=== PATIENT | female | born 1930 | race Caucasian/White ===

== ENCOUNTER 2017-11-14 21:10 | Emergency (ER) | payer MEDICARE, OTHER ==
[2017-11-14] MEDS: IV NORMAL SALINE 500ML BAG 500 ML IV (21:36)
[2017-11-14 21:37] LABS: BASO % 0 % (0-3); EOS % 0 % (0-3); HEMOGLOBIN 13.8 g/dL (12.0-15.5); LYMPH # 0.5 x10^3/uL (1.0-4.8); LYMPH % 4 % (24-48); MEAN CORPUSCULAR HEMOGLOBIN 33 pg (25-35); MEAN CORPUSCULAR HGB CONC 35 g/dL (31-37); MEAN CORPUSCULAR VOLUME 93 fL (79-100); MONO # 0.3 x10^3/uL (0.0-1.1); MONO % 3 % (0-9); NEUT # 10.9 x10^3uL (1.8-7.7); NEUT % 93 % (31-73); PLATELET COUNT 259 x10^3/uL (140-400); RED BLOOD COUNT 4.18 x10^6/uL (3.50-5.40); RED CELL DISTRIBUTION WIDTH 13.4 % (11.5-14.5); WHITE BLOOD COUNT 11.8 x10^3/uL (4.0-11.0)
[2017-11-14 21:42] LABS: ADD MAN DIFF? YES
[2017-11-14 21:52] LABS: ANION GAP 13 (6-14); BLOOD UREA NITROGEN 21 mg/dL (7-20); BUN/CREATININE RATIO 21 (6-20); CALCIUM 8.4 mg/dL (8.5-10.1); CARBON DIOXIDE 23 mmol/L (21-32); CHLORIDE 94 mmol/L (98-107); GFR 52.7; GLUCOSE 146 mg/dL (70-99); POTASSIUM 4.6 mmol/L (3.5-5.1); SODIUM 130 mmol/L (136-145)
[2017-11-14 21:54] LABS: ALBUMIN 3.7 g/dL (3.4-5.0); ALBUMIN/GLOBULIN RATIO 1.1 (1.0-1.7); ALK PHOS 63 U/L (46-116); ALT (SGPT) 24 U/L (14-59); AST (SGOT) 26 U/L (15-37); TOTAL BILIRUBIN 0.6 mg/dL (0.2-1.0); TOTAL PROTEIN 7.2 g/dL (6.4-8.2)
[2017-11-14 21:58] LABS: INFLUENZA A PATIENT NEGATIVE (NEGATIVE); INFLUENZA B PATIENT NEGATIVE (NEGATIVE); OBC FLU VALID
[2017-11-14 22:04] LABS: % BANDS 14 % (0-9); % MONOS 2 % (0-10); % SEGS 80 % (35-66)
[2017-11-14 22:05] LABS: % LYMPHS 4 % (24-48)
[2017-11-14 22:07] LABS: PLT ESTIMATE ADEQUATE (ADEQUATE)
[2017-11-14] MEDS: cefTRIAXone IV Push 1 GM VIAL. IVP (22:43)
== END 2017-11-14 23:39 | disposition home or self-care (01) ==
LOC: ER 21:10
DX: J20.9 Acute bronchitis, unspecified (principal); I10 Essential (primary) hypertension; E78.00 Pure hypercholesterolemia, unspecified; E11.9 Type 2 diabetes mellitus without complications
CPT/HCPCS: 36415; 71045; 80053; 85007; 85025; 87804; 87804-59; 93005; 96361; 96374; 99285-25; J0696; J7040

== ENCOUNTER → 2021-01-29 | Outpatient (CLI) | payer MEDICARE ==
[2020-06-18 11:00] VITALS: BP 148/70
[~2021-01-29] MED LIST: AMLO2.5T5 PO; ASCO100020 PO; ASPI-630 PO; CALC500T30 PO; CHOL10002 PO; CHON250C PO; FISH1200 PO; FLAV3.7O MC; FLAX340P PO; GLUC100018 PO; LACT1CAP2 PO; LISI-517 PO; OMEG-128 PO; OMEP20CA16 PO; PSYL0.5215 PO; RANI300C PO; SIMV20TA18 PO; [UNRECOGNIZED DRUG - CODE] PO
--- NOTE | 2021-01-29 15:22 | KCIC ---
EXAM: Cervical spine, 4 views. HISTORY: Pain. COMPARISON: None. FINDINGS: 4 views of the cervical spine are obtained. There is degenerative endplate remodeling with disc space narrowing, osteophytosis and facet arthropathy at C3-C7. There is no significant listhesis . No fracture is seen. There is calcified atherosclerotic plaque involving the carotid bifurcations. There is thoracic kyphoscoliosis. 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 No acute osseous find ing. Electronically signed by: Fabiola Lynne MD (01/29/2021 3:20 PM) [id number]
== END ==
LOC: KCIC 13:40
PROVIDERS: ATTEND Family Medicine
DX: M47.812 Spondylosis without myelopathy or radiculopathy, cervical region (principal)
CPT/HCPCS: 72040

== ENCOUNTER 2021-05-05 18:27 | Inpatient (IN) | payer MEDICARE ==
[~2021-05-05] VITALS: Ht 142.2 cm; Wt 49.0 kg
--- NOTE | 2021-05-05 22:10 | RAD ---
Single view chest dated 05/05/2021 10:07 PM: COMPARISON: 11/14/2017 Clinical Indication: Covid 19.. Findings: Single upright portable exam of the chest was performed. Heart and mediastinal contours are stable. T ortuosity of the thoracic aorta, unchanged. There is mild patchy increased density at the left lung b ase, similar to prior study. No pleural effusion. No pneumothorax. IMPRESSION: 1. No acute radiographic abnormality. Stable findings compared to 11/14/2017. Electronically signed by: Ian Grossman MD (05/05/2021 10:08 PM) GEETA
--- NOTE | 2021-05-05 22:14 | ED.ADGEN ---
Past Medical History Past Medical History: High Cholesterol, Hypertension Additional Past Medical Histor: COVID POSITIVE 04/26/21 Past Surgical History: No Surgical History Smoking Status: Never Smoker Alcohol Use: None Drug Use: None General Adult EDM: Chief Complaint: FLU SYMPTOM HPI: HPI: Patient is a 89 year old female coming in via EMS for nausea and because she wants someone to take care of her and does not have anyone at home who is willing to do so. Patient was diagnosed with COVID-19 9 days ago and states that she does not feel that she can take care of herself. Lives with her son who works, and has been going to work despite living with her and her positive Covid status. Patient states she has had decreased appetite is been taking levofloxacin prescribed by her primary care, but it makes her nauseous. Patient states that she had tried to stay with her daughter's family but they are also all sick and "unable to take care" of her. Patient is not vaccinated against COVID-19. No other complaints. Review of Systems: Review of Systems: All other systems within normal limits except for as noted in the HPI Allergies: Allergies: Allergies Coded Allergies Type Severity Reaction Last Updated Verified Sulfa (Sulfonamide Antibiotics) Allergy Intermediate Rash 06/16/20 Yes Physical Exam: PE: Constitutional: Well developed, well nourished, no acute distress, non-toxic appearance. [] HENT: Normocephalic, atraumatic, bilateral external ears normal, nose normal. [] Eyes: PERRLA, conjunctiva normal, no discharge. [] Neck: No rigidity, supple, no stridor. [] Cardiovascular: Regular rate and rhythm, brisk cap refill [] Lungs & Thorax: Non labored symmetric respirations, no tachypnea or respiratory distress [] Abdomen: Soft, nondistended. Skin: Warm, dry, no erythema, no rash. [] Back: Unremarkable Extremities: No deformities, range of motion grossly intact, no lower extremity edema [] Neurologic: Alert and oriented X 3, no focal deficits noted. [] Psychologic: Affect normal, judgement normal, mood normal. [] Current Patient Data: Labs: Laboratory Tests Test 05/05/21 22:35 White Blood Count 3.1 x10^3/uL (4.0-11.0) L Red Blood Count 4.26 x10^6/uL (3.50-5.40) Hemoglobin 14.2 g/dL (12.0-15.5) Hematocrit 38.9 % (36.0-47.0) Mean Corpuscular Volume 91 fL (79-100) Mean Corpuscular Hemoglobin 33 pg (25-35) Mean Corpuscular Hemoglobin Concent 37 g/dL (31-37) Red Cell Distribution Width 12.3 % (11.5-14.5) Platelet Count 177 x10^3/uL (140-400) Neutrophils (%) (Auto) 58 % (31-73) Lymphocytes (%) (Auto) 27 % (24-48) Monocytes (%) (Auto) 13 % (0-9) H Eosinophils (%) (Auto) 1 % (0-3) Basophils (%) (Auto) 0 % (0-3) Neutrophils # (Auto) 1.8 x10^3/uL (1.8-7.7) Lymphocytes # (Auto) 0.8 x10^3/uL (1.0-4.8) L Monocytes # (Auto) 0.4 x10^3/uL (0.0-1.1) Eosinophils # (Auto) 0.0 x10^3/uL (0.0-0.7) Basophils # (Auto) 0.0 x10^3/uL (0.0-0.2) Sodium Level 130 mmol/L (136-145) L Potassium Level 4.0 mmol/L (3.5-5.1) Chloride Level 95 mmol/L (98-107) L Carbon Dioxide Level 28 mmol/L (21-32) Anion Gap 7 (6-14) Blood Urea Nitrogen 6 mg/dL (7-20) L Creatinine 0.7 mg/dL (0.6-1.0) Estimated GFR (Cockcroft-Gault) 78.8 BUN/Creatinine Ratio 9 (6-20) Glucose Level 93 mg/dL (70-99) Calcium Level 8.3 mg/dL (8.5-10.1) L Magnesium Level 1.8 mg/dL (1.8-2.4) Total Bilirubin 0.3 mg/dL (0.2-1.0) Aspartate Amino Transferase (AST) 25 U/L (15-37) Alanine Aminotransferase (ALT) 30 U/L (14-59) Alkaline Phosphatase 65 U/L (46-116) Troponin I Quantitative < 0.017 ng/mL (0.000-0.055) Total Protein 6.1 g/dL (6.4-8.2) L Albumin 3.6 g/dL (3.4-5.0) Albumin/Globulin Ratio 1.4 (1.0-1.7) Lipase 311 U/L (73-393) Laboratory Tests 05/05/21 22:35 Laboratory Tests 05/05/21 22:35 Vital Signs: Vital Signs Date Time Temp Pulse Resp B/P (MAP) Pulse Ox O2 Delivery O2 Flow Rate FiO2 05/05/21 21:30 98.0 90 20 179/90 (96) 98 Room Air 98.0 EKG: EKG: Sinus rhythm, prolonged AK interval, no ST elevation depression, left axis deviation [] Heart Score: C/O Chest Pain: No HEART Score for Chest Pain: HEART Score for Chest Pain Response (Comments) Value History Slighlty/Non-Suspicious 0 ECG Nonspecific Repolarizatio 1 Age > 65 2 Risk Factors 1 or 2 Risk Factors 1 Troponin < Normal Limit 0 Total 4 Risk Factors: Risk Factors: DM, Current or recent (<one month) smoker, HTN, HLP, family history of CAD, obesity. Risk Scores: Score 0 - 3: 2.5% MACE over next 6 weeks - Discharge Home Score 4 - 6: 20.3% MACE over next 6 weeks - Admit for Clinical Observation Score 7 - 10: 72.7% MACE over next 6 weeks - Early Invasive Strategies Radiology/Procedures: Radiology/Procedures: [facility] [address] [place] [address] IMAGING REPORT Signed PATIENT: CRISTEL HUFF ACCOUNT: [id number] : 1930 LOCATION: ER AGE: 89 SEX: F EXAM STATUS: REG ER ORD. PHYSICIAN: LUIS ANGEL MORRIS MD REASON: covid PROCEDURE: CHEST AP ONLY Single view chest dated 05/05/2021 10:07 PM: COMPARISON: 11/14/2017 Clinical Indication: Covid 19.. Findings: Single upright portable exam of the chest was performed. Heart and mediastinal contours are stable. Tortuosity of the thoracic aorta, unchanged. There is mild patchy increased density at the left lung base, similar to prior study. No pleural effusion. No pneumothorax. IMPRESSION: 1. No acute radiographic abnormality. Stable findings compared to 11/14/2017. Electronically signed by: Ian Grossman MD (05/05/2021 10:08 PM) [facility] [place] DICTATED and SIGNED BY: IAN GROSSMAN MD DATE: 05/05/21 [id number] [] Course & Med Decision Making: Course & Med Decision Making Pertinent Labs and Imaging studies reviewed. (See chart for details) [] Dragon Disclaimer: Dragon Disclaimer: This electronic medical record was generated, in whole or in part, using a voice recognition dictation system. Departure Departure Impression: Primary Impression: COVID-19 Additional Impressions: Hyponatremia Weakness Disposition: ADMITTED INPATIENT Admitting Physician: Shell Strickland Condition: STABLE Referrals: SHELL STRICKLAND MD (PCP) Problem Qualifiers LUIS ANGEL MORRIS MD May 05, 2021 22:14
[2021-05-05 22:40] LABS: BASO % 0 % (0-3); EOS % 1 % (0-3); HEMATOCRIT 38.9 % (36.0-47.0); HEMOGLOBIN 14.2 g/dL (12.0-15.5); LYMPH # 0.8 x10^3/uL (1.0-4.8); LYMPH % 27 % (24-48); MEAN CORPUSCULAR HEMOGLOBIN 33 pg (25-35); MEAN CORPUSCULAR HGB CONC 37 g/dL (31-37); MEAN CORPUSCULAR VOLUME 91 fL (79-100); MONO # 0.4 x10^3/uL (0.0-1.1); MONO % 13 % (0-9); NEUT # 1.8 x10^3/uL (1.8-7.7); NEUT % 58 % (31-73); PLATELET COUNT 177 x10^3/uL (140-400); RED BLOOD COUNT 4.26 x10^6/uL (3.50-5.40); RED CELL DISTRIBUTION WIDTH 12.3 % (11.5-14.5); WHITE BLOOD COUNT 3.1 x10^3/uL (4.0-11.0)
[2021-05-05 22:52] LABS: CALCIUM 8.3 mg/dL (8.5-10.1); CREATININE 0.7 mg/dL (0.6-1.0); GFR 78.8
[2021-05-05 22:59] LABS: ALBUMIN 3.6 g/dL (3.4-5.0); ALBUMIN/GLOBULIN RATIO 1.4 (1.0-1.7); MAGNESIUM 1.8 mg/dL (1.8-2.4); TOTAL BILIRUBIN 0.3 mg/dL (0.2-1.0); TOTAL PROTEIN 6.1 g/dL (6.4-8.2)
[2021-05-05] MEDS ORDERED: ONDANSETRON PF 4 MG/2 ML VIAL. IVP PRN (23:30)
[2021-05-05] MEDS ORDERED: ACETAMINOPHEN 325 MG TABLET. PO PRN (23:30)
[2021-05-05] MEDS: IV NORMAL SALINE 1000ML BAG 1,000 ML IV SCH (23:52)
--- NOTE | 2021-05-06 01:30 | EKG ---
[facility] [address] [place] [address] Test Date: 2021-05-05 Test Time: 22:05:51 Pat Name: CRISTEL HUFF Department: Room: Gender: F [employer]: : 1930 Requested By: LUIS ANGEL MORRIS Order Number: [id number] Reading MD: Measurements Intervals [place] Rate: 83 P: 54 CO: 238 QRS: -39 QRSD: 68 T: 61 QT: 352 QTc: 419 Interpretive Statements SINUS RHYTHM PROLONGED CO INTERVAL ABNORMAL LEFT AXIS DEVIATION R-S TRANSITION ZONE IN V LEADS DISPLACED TO THE RIGHT QRS(T) CONTOUR ABNORMALITY CONSIDER INFERIOR INFARCT ABNORMAL ECG RI6.02 No previous ECG available for comparison
[2021-05-06 02:42] LABS: BILIRUBIN,URINE NEGATIVE (NEG); CLARITY,URINE CLEAR; COLOR,URINE YELLOW; NITRITE,URINE NEGATIVE (NEG); PH,URINE 7.5 (<5.0-8.0); PROTEIN,URINE NEGATIVE (NEG-TRACE); UROBILINOGEN,URINE 0.2 mg/dL (0.2 mg/dL)
[2021-05-06 03:12] LABS: BACTERIA,URINE 0 /HPF (0-FEW); RBC,URINE 0 /HPF (0-2); WBC,URINE OCC /HPF (0-4)
[2021-05-06 03:50] LABS: BASO % 1 % (0-3); EOS % 1 % (0-3); HEMATOCRIT 39.1 % (36.0-47.0); HEMOGLOBIN 13.9 g/dL (12.0-15.5); LYMPH % 31 % (24-48); MEAN CORPUSCULAR HEMOGLOBIN 33 pg (25-35); MEAN CORPUSCULAR HGB CONC 36 g/dL (31-37); MEAN CORPUSCULAR VOLUME 93 fL (79-100); MONO # 0.5 x10^3/uL (0.0-1.1); MONO % 16 % (0-9); NEUT # 1.6 x10^3/uL (1.8-7.7); NEUT % 51 % (31-73); PLATELET COUNT 165 x10^3/uL (140-400); RED BLOOD COUNT 4.19 x10^6/uL (3.50-5.40); RED CELL DISTRIBUTION WIDTH 12.1 % (11.5-14.5); WHITE BLOOD COUNT 3.1 x10^3/uL (4.0-11.0)
[2021-05-06 04:01] LABS: CALCIUM 8.1 mg/dL (8.5-10.1); CREATININE 0.7 mg/dL (0.6-1.0); GFR 78.8
[2021-05-06] MEDS: IV NORMAL SALINE 1000ML BAG 1,000 ML IV SCH (09:45)
[2021-05-06 11:00] VITALS: BP 135/68
--- NOTE | 2021-05-06 11:42 | HP ---
ADMIT DATE: 05/06/2021 CHIEF COMPLAINT AND HISTORY OF PRESENT ILLNESS: This 89-year-old female who has been feeling bad for the last 1-2 weeks. She is surrounded by COVID with her family having ___ daughters with them trying to take care of her because of progressive weakness. She has had no appetite whatsoever. Has been taking in very little, getting weaker, needing more and more help with self care. She finally called the ambulance herself on the evening of admission, knowing that she was not making it at home. Seen in the Emergency Room where lab was pretty much unremarkable other than some hyponatremia with profound weakness and admitted for some hydration as well as further evaluation. PAST MEDICAL HISTORY: Remarkable for osteoporosis. She has a history of constipation, hypertension, lumbar spinal stenosis. She has severe kyphoscoliosis. PAST SURGICAL HISTORY: Remarkable for a thymectomy and spine surgery at age 15. She has had a prior ____ removed, hemorrhoid surgery and trigger thumb releases bilaterally. MEDICATIONS: Brought with the patient, listed on the computer have been addressed. ALLERGIES: SHE IS ALLERGIC TO SULFA, DOXYCYCLINE, MACRODANTIN. SOCIAL HISTORY: She is , nonsmoker, nondrinker, does not abuse drugs. Currently lives at home alone, but again for the last week has been living with family due to weakness. FAMILY HISTORY: Noncontributory. REVIEW OF SYSTEMS: Remarkable for that as mentioned above as well as extreme fatigue. She also complains of taste being altered and everything tastes horrible. Her tongue is burning. PHYSICAL EXAMINATION: GENERAL: She is a well-developed, well-nourished white female who appears ill. VITAL SIGNS: Stable. She is afebrile. HEAD, EYES, EARS, NOSE AND THROAT: Unremarkable. There is some dryness of mucous membranes. NECK: Supple. No lymphadenopathy, thyromegaly. CHEST: Clear to auscultation with severe kyphoscoliosis. HEART: Regular rate and rhythm. ABDOMEN: Soft, nontender, without hepatosplenomegaly or masses. EXTREMITIES: Without cyanosis, clubbing, edema. NEUROLOGIC: She is intact. IMPRESSION: Nausea, dehydration, probably COVID positive. Currently, no respiratory issues and profound weakness and inability to self-care. PLAN: Admission, hydration therapy, observation. MIMI/MOSHE/KHUSHBU DR: MIMI/venessa TID: [id number]
== END 2021-05-06 15:00 | disposition home or self-care (01) | DRG 178 ==
LOC: ER 18:27 → ED HOLD 23:20 → OBSVTOIN 05-06 09:01
PROVIDERS: ADMIT Family Medicine; ATTEND Family Medicine
DX: U07.1 COVID-19 (principal); E87.1 Hypo-osmolality and hyponatremia; E78.00 Pure hypercholesterolemia, unspecified; E86.0 Dehydration; I10 Essential (primary) hypertension; M41.9 Scoliosis, unspecified; M81.0 Age-related osteoporosis without current pathological fracture; K59.00 Constipation, unspecified; Z88.2 Allergy status to sulfonamides; Z79.899 Other long term (current) drug therapy
CPT/HCPCS: 36415; 71045; 80048; 80053; 81001; 83690; 83735; 84484; 85025; 93005; G0378; G0379; J7030; 99285-25